=== PATIENT | female | born 1955 | race Caucasian/White ===

== ENCOUNTER 2018-10-26 01:38 | Emergency (ER) | payer OTHER, SELFPAY ==
[2018-10-26 01:39] VITALS: BP 154/87; PULSE 78; RESP 16; TEMP 36.4; O2SAT 98; BMI 25.8
--- NOTE | 2018-10-26 01:41 | EKG12_ITS ---
Test Reason : Blood Pressure : / mmHG Vent. Rate : 076 BPM Atrial Rate : 076 BPM P-R Int : 128 ms QRS Dur : 084 ms QT Int : 380 ms P-R-T Axes : 068 068 056 degrees QTc Int : 427 ms Normal sinus rhythm with sinus arrhythmia Septal infarct , age undetermined Abnormal ECG Confirmed by ISAAC VALENCIA, GARRET ([id number]), graphics editor RANDY KIRKLAND ([id number] on 10/29/2018 9:39:42 AM Referred By: REINALDO Confirmed By:GARRET GRAY MD
[2018-10-26] MEDS: Meclizine HCl 25 MG Tablet PO (02:20)
[2018-10-26] MEDS: Ondansetron ODT 4 MG Tablet PO (02:20)
--- NOTE | 2018-10-26 02:59 | ED.DCSUM_ITS ---
- ER Visit Summary Date of Service: 10/26/18 Chief Complaint: Dizziness History of Present Illness: The patient is a 62 F who presents with dizziness. She has been having chronic congestion and rhinorrhea. Recently she states that her left ear feels blocked clogged. Tonight she developed dizziness which she describes as vertigo. She felt like the room was spinning. This is worse with turning her head or lying flat. No other neurological symptoms such as speech difficulty slurred speech weakness or paresthesias. No history of prior similar symptoms. She denies any medical history such as diabetes hypertension hyperlipidemia. She has not a smoker. Physical Examination: Afebrile blood pressure 154/87 vitals otherwise normal Patient does have left nystagmus Left tympanic membrane is normal, right sided cerumen impaction Heart regular rate and rhythm Lungs are clear Abdomen soft Alert and oriented with no focal or lateralizing neurological deficits, NIH stroke scale is 0 Test Results: Not indicated Emergency Department Course and Treatment: Patient's presentation is highly suggestive of peripheral vertigo. She was treated with Zofran and meclizine here with improvement of symptoms. She was given a prescription for meclizine and discharged home. She understands to return for new or worsening symptoms and will otherwise follow-up as an outpatient. Treatment Plan: [] Disposition: Discharge Impression: Vertigo This note was generated with [employer] dictation software. It may contain incorrect words, spelling, and punctuation that were not noted in review of the chart prior to signing ED Disposition - Plan for ED Patient: Chief Complaint: Dizziness Referrals: Desiree Cralson MD [Primary Care Provider] -
--- NOTE | 2018-10-26 02:59 | ED.DEP ---
ED Disposition - Plan for ED Patient: Chief Complaint: Dizziness Instructions: ED Vertigo Unspecified Prescriptions: Meclizine HCl [Antivert] 25 mg PO 4X/DAY PRN PRN #20 tab PRN Reason: Dizziness Referrals: Desiree Carlson MD [Primary Care Provider] -
[2018-10-26 03:13] VITALS: BP 125/71; PULSE 70; RESP 18; O2SAT 97
== END 2018-10-26 03:14 | disposition home or self-care (01) ==
PROVIDERS: Emergency Provider Emergency Medicine; Family Provider Internal Medicine; PCP Internal Medicine
DX: R42 Dizziness and giddiness (principal)
CPT/HCPCS: 93005; 99284

== ENCOUNTER 2021-11-30 10:23 | Emergency (ER) | payer MEDICARE, SELFPAY ==
[2021-11-30 10:24] VITALS: BP 120/84; PULSE 87; RESP 18; TEMP 36.4; O2SAT 100; BMI 27.3
--- NOTE | 2021-11-30 10:42 | RAD_ITS ---
STUDY: X-RAY CHEST REASON FOR EXAM: Female, 66 years old. Chest pain TECHNIQUE: Single AP portable view of the chest. COMPARISON: None. FINDINGS: EKG electrodes are seen. Hyperinflation. The lungs are clear. There is no demonstrated pleural abnormality. Normal size heart. Normal mediastinum and lulu. Normal visualized pulmonary arteries. Normal visualized aortic arch and descending thoracic aorta. There are degenerative changes of the visualized thoracic spine. Normal visualized ribs, clavicles, and shoulders. There is no demonstrated abnormality of the visualized soft tissue structures of the upper abdomen. RAD/Chest 1 View (Portable) IMPRESSION: Hyperinflation. The lungs are clear. Electronically Signed: Andres Donahue MD at 11:23 EST ,
--- NOTE | 2021-11-30 10:42 | EKG12_ITS ---
Test Reason : CP Blood Pressure : / mmHG Vent. Rate : 074 BPM Atrial Rate : 074 BPM P-R Int : 116 ms QRS Dur : 082 ms QT Int : 386 ms P-R-T Axes : 062 075 061 degrees QTc Int : 428 ms Normal sinus rhythm Normal ECG Confirmed by ISAAC VALENCIA, GARRET ([id number]), subeditor SERGO RUBIO ([id number]) on 12/01/2021 9:50:53 AM Referred By: Confirmed By:GARRET GRAY MD
[2021-11-30 10:47] VITALS: O2SAT 96
[2021-11-30 10:52] LABS: Absolute Lymphocyte Count 1.17 X10^3/uL (0.83-4.51); Absolute Neutrophil Count 3.7 X10^3/uL (2.0-7.7); Basophil# 0.05 X10^3/uL; Basophil% 0.9 % (0-1); Eosinophil# 0.21 X10^3/uL; Eosinophils% 3.7 % (0-5); Hematocrit 41.1 % (37-47); Hemoglobin 13.3 g/dL (12.0-15.0); Lymphocyte # 1.17 X10^3/ul (0.83-4.51); Lymphocyte % 20.6 % (19-41); Mean Corp Hgb Conc 32.4 g/dL (32-36); Mean Corpuscular Hgb 29.4 pg (27.0-32.0); Mean Corpuscular Volume 90.9 fL (81-99); Mean Platelet Vol. 11.7 fl (6.2-12.0); Monocyte# 0.57 X10^3/uL; NRBC Flagged by Analyzer 0 % (0-5); Neutrophil # 3.67 X10^3/uL (2.7-7.7); Neutrophil % 64.6 % (47-70); Platelet Count 303 K/mm3 (150-450); RBC Distribution Width CV 13.5 % (11.6-14.6); Red Blood Count 4.52 M/mm3 (4.2-5.4); White Blood Count 5.7 K/mm3 (4.4-11.0)
[2021-11-30 11:03] LABS: BUN 14 mg/dL (7-18); Creatinine, Serum 0.95 mg/dL (0.55-1.02); EST Glomerular Filtration Rate 63 mL/min (>60); Estimated Creatinine Clearance 43.96 ml/min; Glucose 92 mg/dL (74-106)
[2021-11-30 11:04] LABS: Anion Gap 5 (5-15); BUN/Creat Ratio 14.8 RATIO (10-20); Calcium,Total 9.3 mg/dL (8.5-10.1); Chloride 109 mmol/L (98-107); Est Glom Filt Rate - Afr Amer 76 mL/min (>60); Potassium 3.7 mmol/L (3.5-5.1); Sodium Level 141 mmol/L (136-145); Troponin-I HS 6 pg/mL (3.0-54.0)
--- NOTE | 2021-11-30 11:16 | ED.VIS.CHEST ---
HPI History of Present Illness Chief Complaint: Chest Pain Narrative Narrative: 66-year-old female presenting with right-sided lower chest pain. She states that it started this morning upon awakening. She notes it is intermittent and does appear to be somewhat positional. Patient states that yesterday she shoveled snow and thinks may be the cause of this is too much exertion. She states she has not been as active since she retired a year ago. She does note that she gets more short of breath with physical exertion such as shoveling snow. Patient also states that she was more short of breath when shoveling than she would have been a year ago. Patient denies any cardiac history. She is not had fever, chills, cough, body aches. She denies any direct trauma to her chest. PFSH PFSH Medical History no medical history Home Medications NK 11/30/21 [History Last Taken Unknown] Allergy/AdvReac Type Severity Reaction Status Date / Time Sulfa (Sulfonamide Allergy Rash Verified 11/30/21 10:26 Antibiotics) Social History Smoking Status: Never smoker ROS ROS ED Constitutional Constitutional ED: Denies chills or fever(s) Eyes Eyes: Denies blurry vision or change in vision ENT ENT ED: Denies rhinorrhea or sore throat Cardiovascular Cardiovascular: Reports as per HPI Respiratory/Chest Respiratory/Chest: Reports dyspnea; Denies cough or sputum Gastrointestinal Gastrointestinal: Denies abdominal pain, nausea or vomiting Genitourinary Genitourinary ED: Denies dysuria or hematuria Musculoskeletal Musculoskeletal: Denies arthralgias or myalgias Integumentary Denies rash Neurologic Neurologic: Denies headache(s), paresthesias or weakness EXAM Physical Exam Const Vital Signs: 11/30/21 10:24 11/30/21 10:29 11/30/21 10:47 Temperature 97.6 F L Temperature Source Temporal Pulse Rate 87 Respiratory Rate 18 Respiratory Effort Normal Blood Pressure 120/84 H Blood Pressure Mean 96 Pulse Ox 100 96 Oxygen Delivery Method Room Air Room Air 11/30/21 11:54 Temperature Temperature Source Pulse Rate 61 Respiratory Rate 18 Respiratory Effort Blood Pressure 112/64 Blood Pressure Mean 80 Pulse Ox 97 Oxygen Delivery Method Room Air Positive well nourished General Appearance ED: NAD; Negative for pallor HEENT Reports moist mucous membranes normocephalic and atraumatic Eyes PERRL and EOMs intact bilaterally Chest Wall inspection of chest normal and palpation of chest normal Resp normal respiratory effort Effort and Inspection: respiratory distress Cardio regular rate and regular rhythm Neuro oriented x3 Sensorium / Orientation: awake and alert Psych mental status grossly normal Skin no rashes or lesions noted General Skin Exam: Negative for jaundice or pallor Heart Score History: Slightly/Non-Suspicious ECG: Normal Age: </= 45 years Risk Factors: No Risk Factors Troponin: </= Normal Limit Score: 0 MDM MDM MDM Narrative Medical decision making narrative: Patient presenting with a dull intermittent right-sided chest pain which she states started this morning. She herself believes she may have overexerted herself shoveling snow yesterday. She does state that she was more short of breath when she was shoveling snow but states she is also out of shape after retiring a year ago. EKG on my interpretation shows a normal sinus rhythm with ventricular rate of 74 bpm without sign of ischemic change. CBC and BMP are within normal limits. High-sensitivity troponin is 6. Patient does not have sharp pleuritic pain, nor does she have DVT or PE risk factors. Her heart rate is 74 and her oxygen is 100% on room air with normal respiratory rate 18. I have no clinical suspicion for pulmonary embolism. Chest x-ray on my interpretation shows no acute cardiopulmonary process and the radiologist agree. Will obtain delta troponin. Delta troponin is also 6. I do believe this was ACS. All findings discussed with patient and she is comfortable being discharged home to follow-up with her primary care provider. Impression: 1. Chest pain noncardiac Lab Data Attestation: I reviewed the patient's lab results. Labs: Laboratory Results - last 24 hr 11/30/21 11/30/21 11/30/21 10:35 10:35 12:35 WBC 5.7 RBC 4.52 Hgb 13.3 Hct 41.1 MCV 90.9 MCH 29.4 MCHC 32.4 RDW Std Deviation 45.0 H RDW Coeff of Zuri 13.5 Plt Count 303 MPV 11.7 Immature Gran % (Auto) 0.200 Neut % (Auto) 64.6 Lymph % (Auto) 20.6 [place] % (Auto) 10.0 Eos % (Auto) 3.7 Baso % (Auto) 0.9 Absolute Neuts (auto) 3.7 Absolute Lymphs (auto) 1.17 Nucleated RBC % 0 Sodium 141 Potassium 3.7 Chloride 109 H Carbon Dioxide 27.0 Anion Gap 5 BUN 14 Creatinine 0.95 Estim Creat Clear Calc 43.96 Est GFR (MDRD) Af Amer 76 Est GFR (MDRD) Non-Af 63 BUN/Creatinine Ratio 14.8 Glucose 92 Calcium 9.3 Troponin I High Sens 6 6 Radiography Diagnostic Testing: Clinical Impression(s) from Imaging Studies Chest X-Ray 11/30/21 10:42 IMPRESSION: Hyperinflation. The lungs are clear. Electronically Signed: Andres Donahue MD at 11:23 EST , Discharge Plan Triage Chief Complaint: Chest Pain ED Provider: Matteo Harris Dx/Rx/DC Orders Instructions: ED Chest Pain, Noncardiac Prescriptions: No Action NK RF: 0 Primary Care Provider: Desiree Carlson Referrals: Desiree Carlson MD [Primary Care Provider] - Disposition Disposition: Home, Self Care
[2021-11-30 11:54] VITALS: BP 112/64; PULSE 61; RESP 18; O2SAT 97
[2021-11-30 13:11] LABS: Troponin-I HS 6 pg/mL (3.0-54.0)
[2021-11-30 13:46] VITALS: BP 128/75; PULSE 77; RESP 16; O2SAT 98
== END 2021-11-30 13:46 | disposition home or self-care (01) ==
PROVIDERS: Emergency Provider Student in an Organized Health Care Education/Training Program; PCP Internal Medicine; Visit Provider Student in an Organized Health Care Education/Training Program
DX: R07.89 Other chest pain (principal)
CPT/HCPCS: 71045; 80048; 84484; 85025; 93005; 99284; A4216

== ENCOUNTER 2024-11-27 09:12 | Emergency (ER) | payer MEDICARE, SELFPAY ==
[2024-11-27 09:12] VITALS: BP 127/80; PULSE 84; RESP 16; TEMP 36.7; O2SAT 100; BMI 25.3
--- NOTE | 2024-11-27 09:30 | RAD_ITS ---
EXAM: XR Right Wrist Complete, 3 or More Views CLINICAL INDICATION: TECHNIQUE: Frontal, lateral and oblique views of the right wrist. COMPARISON: No relevant prior studies available. FINDINGS: BONES/JOINTS: Comminuted impacted fracture of the distal radius with posterior angulation of the distal fragment. Probable dislocation of the distal radioulnar joint. SOFT TISSUES: Unremarkable. No radiopaque foreign body. RAD/Wrist min 3 Views IMPRESSION: Comminuted impacted fracture of the distal radius with posterior angulation of the distal fragment. Soft tissue swelling. Reading Location: [facility]
[2024-11-27 09:39] VITALS: BP 125/73; BP 127/77; PULSE 78; PULSE 80; PULSE 85; PULSE 88; RESP 16; TEMP 36.5; O2SAT 97; O2SAT 98; O2SAT 99
[2024-11-27] MEDS: Propofol 200 MG/20 ML Vial IV BOLUS (10:00)
[2024-11-27 10:20] VITALS: BP 116/78; BP 127/77; PULSE 68; PULSE 75; RESP 16; O2SAT 93; O2SAT 95
--- NOTE | 2024-11-27 10:23 | RAD_ITS ---
EXAM: WRIST MIN 3 VIEWS CLINICAL HISTORY: Post reduction examination. COMPARISON: Comparison is made with prior study done earlier in the day. TECHNIQUE: Three views were obtained. FINDINGS: The examination was done in the cast. Satisfactory reduction. RAD/Wrist min 3 Views IMPRESSION: The examination was done in the cast. There is satisfactory reduction of the d istal radial fracture. Reading Location: [facility]
[2024-11-27 10:26] VITALS: BP 116/68; PULSE 65; RESP 14; O2SAT 96
--- NOTE | 2024-11-27 10:29 | EX.ED.UPPERE ---
HPI History of Present Illness Chief Complaint: Upper Extremity Injury [facility] Medical History no medical history Home Medications ?Medication ?Instructions ?Recorded ?Last Taken ?Type oxycodone-acetaminophen 5 mg-325 1 tab PO Q6H PRN pain 3 days #12 11/27/24 Unknown Rx mg tablet (Percocet) tabs Allergy/AdvReac Type Severity Reaction Status Date / Time Sulfa (Sulfonamide Allergy Rash Verified 11/30/21 10:26 Antibiotics) Social History Smoking Status: Never smoker EXAM Physical Exam Const Vital Signs: 11/27/24 09:12 11/27/24 09:39 11/27/24 09:39 Temperature 98.0 F 97.7 F L Temperature Source Oral Pulse Rate 84 80 Pulse Rate [1 (Initial Baseline)] Pulse Rate [2] Pulse Rate [3] Pulse Rate [4] Respiratory Rate 16 16 Respiratory Rate [1 (Initial Baseline)] Respiratory Rate [2] Respiratory Rate [3] Respiratory Rate [4] Blood Pressure 127/80 H 125/73 H Blood Pressure [1 (Initial Baseline)] Blood Pressure [4] Blood Pressure Mean 95 Baseline BP 125/73 Pulse Ox 100 99 Oxygen Delivery Method Room Air Nasal Cannula Oxygen Delivery Method [1 (Initial Baseline)] Oxygen Delivery Method [2] Oxygen Delivery Method [3] Oxygen Delivery Method [4] Oxygen Flow Rate (L/min) 2 EtCo2 (Normal 35-45 , high quality CPR 10-20 & ROSC>/=40mmHg 35 EtCo2 (Normal 35-45 , high quality CPR 10-20 & ROSC>/=40mmHg [1 (Initial Baseline)] EtCo2 (Normal 35-45 , high quality CPR 10-20 & ROSC>/=40mmHg [2] EtCo2 (Normal 35-45 , high quality CPR 10-20 & ROSC>/=40mmHg [3] EtCo2 (Normal 35-45 , high quality CPR 10-20 & ROSC>/=40mmHg [4] 11/27/24 09:39 11/27/24 10:20 11/27/24 10:20 Temperature Temperature Source Pulse Rate 75 68 Pulse Rate [1 (Initial Baseline)] 85 Pulse Rate [2] 88 Pulse Rate [3] 78 Pulse Rate [4] 80 Respiratory Rate 16 16 Respiratory Rate [1 (Initial Baseline)] 16 Respiratory Rate [2] 16 Respiratory Rate [3] 16 Respiratory Rate [4] 16 Blood Pressure 127/77 H 116/78 Blood Pressure [1 (Initial Baseline)] 125/73 H Blood Pressure [4] 127/77 H Blood Pressure Mean Baseline BP Pulse Ox 93 95 Oxygen Delivery Method Room Air Room Air Oxygen Delivery Method [1 (Initial Baseline)] Room Air Oxygen Delivery Method [2] Room Air Oxygen Delivery Method [3] Room Air Oxygen Delivery Method [4] Room Air Oxygen Flow Rate (L/min) EtCo2 (Normal 35-45 , high quality CPR 10-20 & ROSC>/=40mmHg 32 29 EtCo2 (Normal 35-45 , high quality CPR 10-20 & ROSC>/=40mmHg [1 (Initial Baseline)] 28 EtCo2 (Normal 35-45 , high quality CPR 10-20 & ROSC>/=40mmHg [2] 29 EtCo2 (Normal 35-45 , high quality CPR 10-20 & ROSC>/=40mmHg [3] 30 EtCo2 (Normal 35-45 , high quality CPR 10-20 & ROSC>/=40mmHg [4] 28 11/27/24 10:26 Temperature Temperature Source Pulse Rate 65 Pulse Rate [1 (Initial Baseline)] Pulse Rate [2] Pulse Rate [3] Pulse Rate [4] Respiratory Rate 14 Respiratory Rate [1 (Initial Baseline)] Respiratory Rate [2] Respiratory Rate [3] Respiratory Rate [4] Blood Pressure 116/68 Blood Pressure [1 (Initial Baseline)] Blood Pressure [4] Blood Pressure Mean Baseline BP Pulse Ox 96 Oxygen Delivery Method Room Air Oxygen Delivery Method [1 (Initial Baseline)] Oxygen Delivery Method [2] Oxygen Delivery Method [3] Oxygen Delivery Method [4] Oxygen Flow Rate (L/min) EtCo2 (Normal 35-45 , high quality CPR 10-20 & ROSC>/=40mmHg 29 EtCo2 (Normal 35-45 , high quality CPR 10-20 & ROSC>/=40mmHg [1 (Initial Baseline)] EtCo2 (Normal 35-45 , high quality CPR 10-20 & ROSC>/=40mmHg [2] EtCo2 (Normal 35-45 , high quality CPR 10-20 & ROSC>/=40mmHg [3] EtCo2 (Normal 35-45 , high quality CPR 10-20 & ROSC>/=40mmHg [4] MDM MDM MDM Narrative Medical decision making narrative: Differential diagnosis includes but not limited to fracture dislocation sprain tendon injury neurovascular injury My independent interpretation of the plain films of the right wrist has a distal radius fracture comminuted with posterior angulation. Patient provided informed written consent for the use of propofol for procedural sedation. Once the usual prep was completed patient received 0.5 mg/kg bolus of propofol followed by 0.25 mg/kg aliquots of propofol to achieve adequate sedation. Total use was 75 mg. The patient achieved adequate sedation and using standard reduction technique the fracture was reduced and she was placed in a well-padded anterior posterior plaster splint made by this physician. She was allowed to recover without incident. My independent interpretation of the postreduction films is satisfactory reduction. She remains neurovascularly intact on my repeat examination. She will be discharged home with orthopedic follow-up. I will write for pain medication. History & Record Review Discussion w/independent historian: Patient Radiography Diagnostic Testing: Clinical Impression(s) from Imaging Studies Wrist X-Ray 11/27/24 09:30 IMPRESSION: Comminuted impacted fracture of the distal radius with posterior angulation of the distal fragment. Soft tissue swelling. Reading Location: [facility] Procedures Procedural Sedation 1 (Initial Baseline): Consent Signed: Yes Any Problems With Anesthesia: No You/Your family experience fever (hyperthermia) w/anesthesia: No Sedation medication: Propofol Dose: 6 Total Moderate Sedation Units: 75 Maliampati Score: Class I ASA Classification: I Discharge Plan Triage Chief Complaint: Upper Extremity Injury ED Provider: Rufino Kelly Dx/Rx/DC Orders Clinical Impression: Fall, Distal radius fracture, right Instructions: Distal Radius Fx, ED Procedural Sedation, (Adult) Prescriptions: New oxycodone-acetaminophen [Percocet] 5-325 mg tablet 1 tab PO Q6H PRN (Reason: pain) 3 Days Qty: 12 0RF Primary Care Provider: Desiree Carlson Referrals: Desiree Carlson MD [Primary Care Provider] - Terrance Edmondson MD [Med Staff - Active Staff] - As soon as possible Print Language: Barbadian Disposition Disposition: Home, Self Care
[2024-11-27 10:31] VITALS: BP 100/72; PULSE 65; RESP 16; O2SAT 97
== END 2024-11-27 11:30 | disposition home or self-care (01) ==
PROVIDERS: Emergency Provider Emergency Medicine; PCP Internal Medicine; Visit Provider Emergency Medicine
DX: S52.501A Unspecified fracture of the lower end of right radius, initial encounter for closed fracture (principal); W19.XXXA Unspecified fall, initial encounter
CPT/HCPCS: 25635; 29125; 73110; 99284; A4216

== ENCOUNTER 2024-12-17 07:23 | Day surgery (SDC) | payer MEDICARE, SELFPAY ==
[2024-12-17] VITALS (17 sets, daily range): BP systolic 118–145; BP diastolic 70–92; PULSE 54–95; RESP 16–20; TEMP 36.1–36.4; O2SAT 93–100; BMI 25.0
--- NOTE | 2024-12-17 07:34 | EKG12_ITS ---
Test Reason : PRE OP Blood Pressure : */* mmHG Vent. Rate : 70 BPM Atrial Rate : 70 BPM P-R Int : 130 ms QRS Dur : 84 ms QT Int : 380 ms P-R-T Axes : 64 71 67 degrees QTcB Int : 410 ms Normal sinus rhythm Normal ECG No previous ECGs available Confirmed by Denis Vera ([id number]), digital editor SERGO RUBIO ([id number]) on 12/22/2024 10:58:26 AM Referred By: Terrance Edmondson Confirmed By: Denis Vera
--- NOTE | 2024-12-17 08:00 | RAD_ITS ---
PROCEDURE: WRIST 2 VIEWS REASON FOR EXAM: Fracture. TECHNIQUE: Multiple spot intraoperative films. COMPARISON: None. FINDINGS: Number of images: 4 Fluoroscopy time: 27 seconds Dose: 0.43 mGy Surgical hardware in the distal radius RAD/Wrist 2 Views IMPRESSION: INTRAOPERATIVE FILMS FOR LOCALIZATION. Reading Location: [id number]
[2024-12-17] MEDS: 0.9% Normal Saline (1000mL) 1,000 ML 15 ML IV (08:09)
--- NOTE | 2024-12-17 08:23 | PRE.ANES_ITS ---
ASA Classification* ASA Classification ASA Classification: 3 Assessment & Plan Anesthesia* Anesthesia Assessment Anesthesia Assessment: Discussed sedation and/or anesthesia options, risks, benefits, and alternatives with patient/parents/legal guardian/POA. Questions invited. The patient/parents/legal guardian/POA seems to understand and agrees to proceed with anesthesia plan. Reviewed the physical assessment, medical history, allergy history and patient home medications list prior to surgery/procedure/anesthetic and documented any changes. Performed airway and anesthesia risk assessments. Anesthesia Type Anesthesia Type: General History Source History Obtained from:: Patient and Chart Anesthesia Focused Assessment* Temperature: 97.5 F Pulse Rate: 81 Blood Pressure: 121/75 Respiratory Rate: 18 Pulse Ox: 97 Oxygen Delivery Method: Room Air Airway Assessment Mouth opens: 2 cm Mallampati Score: II Teeth Condition: Dentures, Missing (few missing teeth on the bottom) and Upper Neck Range of motion (ROM): Full ROM Focused Labs Anesthesia Preop lab: CBC WBC 5.7 K/mm3 (4.4-11.0) 11/30/21 10:35 11/30/21 RBC 4.52 M/mm3 (4.2-5.4) 11/30/21 10:35 11/30/21 Hgb 13.3 g/dL (12.0-15.0) 11/30/21 10:35 11/30/21 Hct 41.1 % (37-47) 11/30/21 10:35 11/30/21 Plt Count 303 K/mm3 (150-450) 11/30/21 10:35 11/30/21 CHEMISTRY Potassium 3.7 mmol/L (3.5-5.1) 11/30/21 10:35 11/30/21 Sodium 141 mmol/L (136-145) 11/30/21 10:35 11/30/21 BUN 14 mg/dL (7-18) 11/30/21 10:35 11/30/21 Creatinine 0.95 mg/dL (0.55-1.02) 11/30/21 10:35 11/30/21 Glucose 92 mg/dL (74-106) 11/30/21 10:35 11/30/21 COAG Pre-Assessment Diagnosis/Proposed Procedure Planned Operative Procedure(s): RIGHT DISTAL RADIUS ORIF Anesthesia History 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 When Was Last Pacemaker Check QUESTION #4 FULL TEXT: You/Your Family Experience fever (hyperthermia) with Anesthesia Last Oral Intake Last Oral intake: Last Oral Intake NPO since 00:00 12/17/24 08:00 Meds taken in AM with sips of No 12/17/24 08:00 water? Meds patient instructed to take am of surgery Any additional information?: Yes NPO since: 00:00 Meds taken in AM with sips of water?: No PONV PONV - apparel pattern maker: PONV - apparel pattern maker Female Yes 12/12/24 11:31 HX of Motion Sickness No 12/12/24 11:31 HX of N/V After Surgery No 12/12/24 11:31 Non-Smoker Yes 12/12/24 11:31 Duration of Surgery greater Yes 12/12/24 11:31 than 60 minutes Number of Risk Factors 3 12/12/24 11:31 PONV Score Moderate Risk 12/12/24 11:31 Height & Weight Height & Weight: Anesthesia: Height & Weight Height 5 ft 1 in 12/17/24 08:00 Weight: 60 kg 12/17/24 08:00 Body Mass Index (BMI) 25.0 12/17/24 08:00 Respiratory Assessment Respiratory Assessment - apparel pattern maker: Respiratory Tract Infection Hx - apparel pattern maker Hx Respiratory Tract Infection No 12/12/24 11:31 STOP Sleep Apnea STOP Sleep Apnea - apparel pattern maker: STOP Sleep Apnea - apparel pattern maker Hx Hypertension No 12/12/24 11:31 Hx Sleep Apnea No 12/12/24 11:31 CPAP BIPAP Do you snore loudly (louder No 12/12/24 11:31 than talking or can be heard Do you often feel tired/ Yes 12/12/24 11:31 fatigued/ sleepy during daytime? Has anyone observed you stop No 12/12/24 11:31 breathing during sleep? STOP Results Negative 12/12/24 11:31 QUESTION #5 FULL TEXT : Do you snore loudly (louder than talking or can be heard through closed doors)? 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 Specify any problems Hx of Preganancy in last 3 No 12/12/24 11:31 Months Nurse Filling Out Transfusion DSCHRIBER 12/12/24 11:31 & Questions: Date: 12/12/24 12/12/24 11:31 Time: 11:32 12/12/24 11:31 Patient unable to answer at this time (ie. confused, unrespo /Reproduction History /Reproductive History - apparel pattern maker: /Reproductive Hx- apparel pattern maker Hx Now No 12/12/24 11:31 Gestational Age (in weeks): EDC: Hx Hx Para Hx Section SAB No 12/12/24 11:31 Active Medications Active Medications: Current Medications Generic Name Dose Route Start Last Admin Trade Name Freq PRN Reason Stop Dose Admin Cefazolin Sodium 2 gm/ N/A 20 mls @ 400 mls/hr 12/17/24 09:00 IV 12/17/24 09:02 PREOP ONE Sodium Chloride 1,000 mls @ 15 mls/hr 12/17/24 07:35 12/17/24 08:09 IV 12/22/24 20:54 15 mls/hr .Q48H KEENAN Administration Protocol PFSH Medical History Wears glasses Wears dentures Post-menopausal Alcohol use Anemia Migraine headache Shortness of breath on exertion Non-smoker History of stress test Home Medications ?Medication ?Instructions ?Recorded ?Last Taken ?Type multivitamin (Daily Multi-Vitamin 1 tab PO DAILY 12/1212/16/24 History tablet) Allergy/AdvReac Type Severity Reaction Status Date / Time Sulfa (Sulfonamide Allergy Rash Verified 12/17/24 07:59 Antibiotics) Surgical History Hx of tonsillectomy History of esophagogastroduodenoscopy (EGD) Hx of colonoscopy Hx of breast biopsy Social History Smoking Status: Never smoker Review of Systems (Anesthesia) ROS Narrative System reviewed and no additional complaints, except as documented. Physical Exam Const alert and oriented x3 HEENT dentition normal Neck full ROM Resp normal respiratory effort Cardio regular rate Neuro oriented x3 and moves all extremities
--- NOTE | 2024-12-17 08:56 | HP.PCM_ITS ---
HPI - General HPI Narrative SMILEY SHAH, is a 69 F who presents for right distal radius open reduction internal fixation possible fixation of the ulna. No changes to the history and physical exam. Patient understands risks alternatives benefits discussed as well as postoperative recovery and narcotic counseling. Patient understands r ight wrist marked no further questions or concerns. MR#: [id number] Acct: [id number] Name: SMILEY SHAH Rep #: [id number] : 1955 Provider: Dr. Terrance Edmondson MD Age/Sex: 69/F [place] [facility] [email or web address] Status: Signed Intake Vital Signs 11/27/2508:12 Height 5 ft 1 in Intake Visit Reasons: RIGHT WRIST Allergies Sulfa (Sulfonamide Antibiotics) Allergy (Verified 11/30/21 10:26) Rash Have you fallen in the past year?: Yes PFSH Medical History no medical history Social History Smoking Status: Never smoker HPI RIGHT WRIST Details: This documentation accurately reflects the service provided and the decisions made by me, Dr. Terrance Edmondson MD 12/11/24 1036. Part of today?s visit was documented by [ ], acting as scribe. SMILEY SHAH is a 69 year old F here today for right distal radius fracture. Vadim rodriguez was in the emergency department on 11/27 this would have been 2 weeks ago now. Had a closed reduction and casting. The patient slipped on ice about 2 weeks ago. Had a closed reduction and casting in the emergency department. This is a [id number] female. They are retired. Had some swelling in the hand initially and some bruising but that has largely resolved at this point with normal sensation throughout the hand. Supplemental Info [facility] [address], [place] [id number] Wrist min 3 Views MR#: [id number] Acct: [id number] Name: SMILEY SHAH Rep #: [id number] : 1955 F 69 From: Olvin Candelaria MD PCP: Dr. Desiree Carlson MD Status: REG ER Study: Wrist min 3 Views Date of Exam: 11/27/24 Exam# [id number] Ordering Dr: Rufino Kelly DO EXAM: XR Right Wrist Complete, 3 or More Views CLINICAL INDICATION: TECHNIQUE: Frontal, lateral and oblique views of the right wrist. COMPARISON: No relevant prior studies available. FINDINGS: BONES/JOINTS: Comminuted impacted fracture of the distal radius with posterior angulation of the distal fragment. Probable dislocation of the distal radioulnar joint. SOFT TISSUES: Unremarkable. No radiopaque foreign body. RAD/Wrist min 3 Views IMPRESSION: Comminuted impacted fracture of the distal radius with posterior angulation of the distal fragment. Soft tissue swelling. [facility] [address] [place] [address] Wrist min 3 Views MR#: [id number] Acct: [id number] Name: SMILEY SHAH Rep #: [id number] : 1955 F 69 From: Andres Donahue MD PCP: Dr. Desiree Carlson MD Status: REG ER Study: Wrist min 3 Views Date of Exam: 11/27/24 Exam# [id number] Ordering Dr: Rufino Kelly DO EXAM: WRIST MIN 3 VIEWS CLINICAL HISTORY: Post reduction examination. COMPARISON: Comparison is made with prior study done earlier in the day. TECHNIQUE: Three views were obtained. FINDINGS: The examination was done in the cast. Satisfactory reduction. RAD/Wrist min 3 Views IMPRESSION: The examination was done in the cast. There is satisfactory reduction of the distal radial fracture. I independently reviewed the imaging. Concur with radiologist report. Repeat x-rays 3 views of the right wrist obtained today. This shows a repeat dorsal displacement of the distal fragment up to 40% displacement dorsal angulation. This is displaced into the original position it was in there does also appear to be possibly a transverse distal ulna fracture. Coding Level of Care Code Off vis,new,level 3 Diagnoses Distal radius fracture, right S52.501A Assessment and Plan Assessment and Plan (1) Distal radius fracture, right: Status: Inactive Plan: SMILEY SHAH is a 69 year old F here today for right distal radius fracture. There also appears to be possibly a nondisplaced transverse distal ulna fra cture. The position of the fracture is not ideal. It is displaced dorsally. The risk of continue to treat this nonoperatively would be wrist stiffness malunion possibly further displacement and stiffness of the wrist and other problems with malalignment of the carpus. That being said there is also risk for surgery open reduction internal fixation of the radius and possible fixation of the distal ulna fracture as well. Explained these risks and the patient does want to go ahead with right distal radius open reduction internal fixation possible fixation of the ulna. We will try to get this done within the next week. Pros and cons risks and benefits were discussed with the patient including but not limited to infection, pain, stiffness, bleeding, damage to surrounding structures, neurovascular injury, recurrence or retear, failure or wear of hardware or fixation, instability, fracture, deep vein thrombosis and pulmonary embolism, anesthetic risks, , patient dissatisfaction, need for further surgery and other risks. Patient understood and wished to proceed with surgery, and signed the informed consent documentation. Orders: Orders Wrist min 3 Views Today S52.501A - Unspecified fracture of the lower end of right radius, initial encounter for closed fracture Clinical Quality Measures Falls Risk Screening/Assistive Devices Have you fallen in the past year?: Yes Ortho Exam General General: Yes no acute distress Neurologic: Yes alert and Yes oriented x3 Psychologic: Yes reasonable and appropriate Right Wrist/Hand Skin/Wound: Yes CDI, Yes Swelling, No Ecchymosis, Yes nail intact and Yes cap illary refill normal Right Wrist: Yes TTP Fracture site Motor: EPL: 4, FDP-2: 4, 1st Dorsal Interosseous: 4 and APB: 4 Sensation: Radial: I, Ulnar: I and Median: I WRIST: Patient in a volar and dorsal based splint. This immobilizes the wrist. The forearm is soft no pain in the elbow or fingers. Left Wrist/Hand Skin/Wound: Yes Swelling and No Ecchymosis [facility] Medical History Wears glasses Wears dentures Post-menopausal Alcohol use Anemia Migraine headache Shortness of breath on exertion Non-smoker History of stress test Home Medications ?Medication ?Instructions ?Recorded ?Last Taken ?Type multivitamin (Daily Multi-Vitamin 1 tab PO DAILY 12/1212/16/24 History tablet) Allergy/AdvReac Type Severity Reaction Status Date / Time Sulfa (Sulfonamide Allergy Rash Verified 12/17/24 07:59 Antibiotics) Surgical History Hx of tonsillectomy History of esophagogastroduodenoscopy (EGD) Hx of colonoscopy Hx of breast biopsy Social History Smoking Status: Never smoker Vital Signs Vital Signs Vital Signs: 12/17/24 08:00 12/17/24 08:00 12/17/24 08:31 Temperature 97.5 F L 97.5 F L Temperature Source Temporal Pulse Rate 81 81 Respiratory Rate 18 18 Respiratory Pattern Normal Blood Pressure 121/75 H 121/75 H Blood Pressure Mean 90 Blood Pressure Source Monitor Blood Pressure Position Semi-Fowlers Blood Pressure Location Left Arm Pulse Ox 97 97 Oxygen Delivery Method Room Air Room Air Weight Weight: 132 lb 4.438 oz Body Mass Index (BMI) 25.0
--- NOTE | 2024-12-17 09:28 | PCM.PRE.AN2 ---
Assessment & Plan Anesthesia* Anesthesia Assessment Anesthesia Assessment: Discussed sedation and/or anesthesia options, risks, benefits, and alternatives with patient/parents/legal guardian/POA. Questions invited. The patient/parents/legal guardian/POA seems to understand and agrees to proceed with anesthesia plan. Reviewed the physical assessment, medical history, allergy history and patient home medications list prior to surgery/procedure/anesthetic and documented any changes. Performed airway and anesthesia risk assessments. Anesthesia Focused Assessment* Temperature: 97.5 F Pulse Rate: 81 Blood Pressure: 121/75 Respiratory Rate: 18 Pulse Ox: 97 Oxygen Delivery Method: Room Air Airway Assessment Mouth opens: 2 cm Mallampati Score: II Teeth Condition: Intact Neck Range of motion (ROM): Full ROM Focused Labs Anesthesia Preop lab: CBC WBC 5.7 K/mm3 (4.4-11.0) 11/30/21 10:35 11/30/21 RBC 4.52 M/mm3 (4.2-5.4) 11/30/21 10:35 11/30/21 Hgb 13.3 g/dL (12.0-15.0) 11/30/21 10:35 11/30/21 Hct 41.1 % (37-47) 11/30/21 10:35 11/30/21 Plt Count 303 K/mm3 (150-450) 11/30/21 10:35 11/30/21 CHEMISTRY Potassium 3.7 mmol/L (3.5-5.1) 11/30/21 10:35 11/30/21 Sodium 141 mmol/L (136-145) 11/30/21 10:35 11/30/21 BUN 14 mg/dL (7-18) 11/30/21 10:35 11/30/21 Creatinine 0.95 mg/dL (0.55-1.02) 11/30/21 10:35 11/30/21 Glucose 92 mg/dL (74-106) 11/30/21 10:35 11/30/21 COAG Pre-Assessment Diagnosis/Proposed Procedure Planned Operative Procedure(s): RIGHT DISTAL RADIUS ORIF Anesthesia History Anesthesia History - animal physiologist: Anesthesia History - animal physiologist Hx Hospitalization No 12/12/24 11:31 Any Problems With Anesthesia [ No 11/27/24 10:33 1 (Initial Baseline)] Any Problems With Anesthesia No 12/12/24 11:31 Cholinesterase deficiency No 12/12/24 11:31 You/Your Family Experience No 12/12/24 11:31 fever (hyperthermia) with Relationship Recent Exposure to Contagious No 12/17/24 08:00 Disease Does patient have nerve No 12/12/24 11:31 stimulator Patient instructed to have device shut off --Does patient have Pacemaker No 12/17/24 08:00 or ICD? When Was Last Pacemaker Check QUESTION #4 FULL TEXT: You/Your Family Experience fever (hyperthermia) with Anesthesia Last Oral Intake Last Oral intake: Last Oral Intake NPO since 00:00 12/17/24 08:31 Meds taken in AM with sips of No 12/17/24 08:31 water? Meds patient instructed to take am of surgery PONV PONV - animal physiologist: PONV - animal physiologist Female Yes 12/12/24 11:31 HX of Motion Sickness No 12/12/24 11:31 HX of N/V After Surgery No 12/12/24 11:31 Non-Smoker Yes 12/12/24 11:31 Duration of Surgery greater Yes 12/12/24 11:31 than 60 minutes Number of Risk Factors 3 12/12/24 11:31 PONV Score Moderate Risk 12/12/24 11:31 Height & Weight Height & Weight: Anesthesia: Height & Weight Height 5 ft 1 in 12/17/24 08:00 Weight: 60 kg 12/17/24 08:00 Body Mass Index (BMI) 25.0 12/17/24 08:00 Respiratory Assessment Respiratory Assessment - animal physiologist: Respiratory Tract Infection Hx - animal physiologist Hx Respiratory Tract Infection No 12/12/24 11:31 STOP Sleep Apnea STOP Sleep Apnea - animal physiologist: STOP Sleep Apnea - animal physiologist Hx Hypertension No 12/12/24 11:31 Hx Sleep Apnea No 12/12/24 11:31 CPAP BIPAP Do you snore loudly (louder No 12/12/24 11:31 than talking or can be heard Do you often feel tired/ Yes 12/12/24 11:31 fatigued/ sleepy during daytime? Has anyone observed you stop No 12/12/24 11:31 breathing during sleep? STOP Results Negative 12/12/24 11:31 QUESTION #5 FULL TEXT : Do you snore loudly (louder than talking or can be heard through closed doors)? Tobacco Use History Tobacco Use History - animal physiologist: Tobacco Use History - animal physiologist Tobacco Use Smoking Status Never smoker 12/12/24 11:31 Hx Tobacco Use No 12/12/24 11:31 Years Smoking Packs Smoked per Day Smoking Cessation Date was within the last 15 years Hx Smoking Cessation Date Hx Smoking Cessation Counseling Hematologic Medial History Hematologic Hx - animal physiologist: Hematologic Medical Hx - ruling machine operator Hx of Blood Transfusion No 12/12/24 11:31 Hx of Transfusion in last 3 No 12/12/24 11:31 Months Date of Last Transfusion (if within last 3 months) Ever experience any problems No 12/12/24 11:31 with transfusion(s)? Specify any problems Hx of Preganancy in last 3 No 12/12/24 11:31 Months Nurse Filling Out Transfusion DSCHRIBER 12/12/24 11:31 & Questions: Date: 12/12/24 12/12/24 11:31 Time: 11:32 12/12/24 11:31 Patient unable to answer at this time (ie. confused, unrespo /Reproduction History /Reproductive History - animal physiologist: /Reproductive Hx- animal physiologist Hx Now No 12/12/24 11:31 Gestational Age (in weeks): EDC: Hx Hx Para Hx Section SAB No 12/12/24 11:31 Active Medications Active Medications: Current Medications Generic Name Dose Route Start Last Admin Trade Name Freq PRN Reason Stop Dose Admin Sodium Chloride 1,000 mls @ 15 mls/hr 12/17/24 07:35 12/17/24 08:09 IV 12/22/24 20:54 15 mls/hr .Q48H KEENAN Administration Protocol PFSH Medical History Wears glasses Wears dentures Post-menopausal Alcohol use Anemia Migraine headache Shortness of breath on exertion Non-smoker History of stress test Home Medications ?Medication ?Instructions ?Recorded ?Last Taken ?Type multivitamin (Daily Multi-Vitamin 1 tab PO DAILY 12/12/24 12/16/24 History tablet) Allergy/AdvReac Type Severity Reaction Status Date / Time Sulfa (Sulfonamide Allergy Rash Verified 12/17/24 07:59 Antibiotics) Surgical History Hx of tonsillectomy History of esophagogastroduodenoscopy (EGD) Hx of colonoscopy Hx of breast biopsy Social History Smoking Status: Never smoker Review of Systems (Anesthesia) ROS Narrative System reviewed and no additional complaints, except as documented.
--- NOTE | 2024-12-17 09:34 | PCM.PN.BLA ---
Progress Note Anesthesia Pre-evaluation addition: Patient was seen in preop with daughter at bedside. Discussed possibility of performing a post-operative supraclavicular nerve block with ultrasound guidance if needed in the recovery area. Discussed risks including nerve injury, pneumothorax, LAST allergic reaction, lack of efficiacy, difficulty breathing. Patient and daughter okay and consented.
[2024-12-17] MEDS: Cefazolin 2 GM in Syringe IV (09:35)
[2024-12-17] MEDS: Bupivacaine 0.25% 30 ML Vial (10:37)
--- NOTE | 2024-12-17 10:38 | PCM.OPRPT ---
Problems Associated Problem List Diagnoses (1) Distal radius fracture, right: Procedures Musculoskeletal [id number]-29xxx: Other Procedure See Report Operative Report (Standard) Operative Information Date of Procedure: 12/17/24 Pre-Operative Diagnosis: Right distal radius fracture Post-Operative Diagnosis: Same Surgery/Procedure Performed: Right distal radius open reduction internal fixation hotel superintendent: Yes Housekeeping Room Inspector: william Tasks completed by certified ophthalmic surgical assistant: Retracting Additional assistant front end manager?: No Type of Anesthesia: General and Local RN Documented Start/Stop Times: Operation Date: 12/17/24 09:00 Case Time Into Pre-Op 12/17/24 07:32 Out of Pre-Op 12/17/24 09:25 Anesthesia Start 12/17/24 09:31 Into Room 12/17/24 09:31 Procedure Start 12/17/24 09:47 Procedure End 12/17/24 10:37 Procedure Start Time: 09:47 Procedure Stop Time: 10:37 Select all DRAINS/GRAFTS/IMPLANTS that apply: Implanted device Implanted device details: Arthrex distal radius plate Estimated Blood Loss: 25 Specimen collected: No Description of surgery: Patient brought to the operating room theater. Placed supine on the table. General anesthesia induced. 2 g IV Ancef administered prior to the start of the case. Bed turned 90 degrees. 18 inch tourniquet applied to the right upper extremity appropriately padded. SCDs on the legs. All bony prominences padded. Upper extremity prepped and draped with chlorhexidine-based prep solution allowing over 3 minutes drying time prior to draping. Preoperative timeout performed to confirm the site patient and the surgery. Began by elevating the limb inflated the tourniquet to 250 mmHg. Made a standard volar FCR approach to the distal radius. The dissection down through skin and subcutaneous tissue achieved meticulous hemostasis. Incised the FCR tendon sheath as well as the subs sheath retracted this radially. Identified the FPL ligated any crossing branches of the radial artery. Retracted FPL ulnarly. Made an L-shaped incision of pronator quadratus. Elevated this from radially to ulnarly. Identified the fracture site there is already callus interposed there and remobilize the fracture site and used a rongeur's to mobilize and freshen the fracture as well as remove any callus. Reduce the fracture anatomically. This is a 2 part extra-articular transverse metaphyseal fracture. Achieving anatomic reduction. Placed an Arthrex narrow precontoured volar radius plate on the bone. I fixed this to the proximal fragment. Then ensure the distal fragment was out to length and well aligned. I inserted 4 fully threaded locking cortical screws of the distal fragment 2.4 mm as well as 3 proximal 2.7 millimeter screws to fix the plate down to the bone. This were cortical screws. This achieved good fixation. It took final radiographs AP lateral oblique as well as 30 degree joint view to ensure that the plate was proximal well centered on the bone the screws had good bite and anatomic reduction no screw penetration to the joint. The distal screws I slightly shortened so that the screws were 20 mm in length distally to avoid dorsal penetration. Tourniquet let down meticulous hemostasis wound thoroughly irrigated. Subcutaneous tissue closed with 2-0 Vicryl suture skin with 3-0 Monocryl. 10 cc core percent bupivacaine used. Skin cleaned with wet and dry dressing followed application of Steri-Strips Adaptic 4 x 4 gauze sterile cast padding volar fiberglass prefabricated volar splint with the hand and wrist in neutral lightly overwrapped with Robert wrap. This was allowed to harden. Patient woken up for the general anesthetic transferred off the operating table taken to postanesthetic care unit in stable condition. All sponge needle instrument counts were correct no complications plan for the patient discharged home according to day surgery criteria. CPT 76558? Surgical Findings: As above Complications Complications: No Admit VTE Documentation VTE Present on Admission: No VTE Mechan Device Prophylaxis: SCD's VTE Pharm Prophylaxis ordered?: No Reason prophylaxis not ordered: Treatment Not Indicated
--- NOTE | 2024-12-17 10:44 | DCINST_ITS ---
Discharge Instructions Diet Discharge Diet: No restrictions Activity Ice area for (Minutes): 10 Keep extremity elevated above heart level: Operative Extremity Additional Activity Instructions:: no heavy lifting or gripping Dressing / Incision Call your doctor if your incision/area has: Continuous Slow Oozing, Sudden Increased Bleeding, Increased Pain/ Swelling, Increased Redness, Foul Smelling Discharge and Swelling at the incision site Call your doctor if you observe: Fever of 101 or Higher, Coldness, Increased Pain and Numbness or Tingling Remove Dressing in: leave in place till F/U Cleanse incision/area with: Do not get Incision Wet Follow Up Care Please Follow Up With: Terrance Edmondson MD When: within 2 weeks Test Results: Test results from this visit will be discussed in further detail at your follow- up appointment, if applicable. Discharge Plan Admission Attending Provider: Terrance Edmondson Primary Care Provider: Desiree Carlson Instructions Print Language: American Discharge Orders/Prescriptions Prescriptions: New oxycodone-acetaminophen [Endocet] 5-325 mg tablet 1 tab PO Q4H MDD 6 PRN (Reason: pain) 4 Days Qty: 20 0RF No Action multivitamin [Daily Multi-Vitamin] Tablet 1 tab PO DAILY Referrals / Follow Up: Desiree Carlson MD [Primary Care Provider] - Terrance Edmondson MD [Med Staff - Active Staff] - Disposition Disposition (needs filled in before D/C Order can be placed): Home, Self Care
--- NOTE | 2024-12-17 10:48 | PCM.POST.ANE ---
Anesthesia: Postop Eval I Current Vital Signs Temperature: 97.6 F Pulse Rate: 95 Blood Pressure: 130/87 Respiratory Rate: 18 Pulse Ox: 97 Oxygen Delivery Method: Nasal Cannula Oxygen Flow Rate (L/min): 4 Assessment Airway patent: Yes Spontaneous unlabored respirations: Yes Mental status: Awake and Calm nausea: No Vomiting: No Anesthesia Complication: No Fluid Hydration Crystalloid volume administer (ml): 1,000 Total IV fluid infused: 1,000 Progress Note Anesthesia document: Postop Eval 1 completed: No
--- NOTE | 2024-12-17 15:24 | POSTOPAN2_ITS ---
Anesthesia Postop Eval I Sum Postop Eval Completion status Anesthesia document: Postop Eval 1 completed: No Anesthesia Postop Eval I Summary Anesthesia Postop Eval I Summary: Anesthesia Postop Eval I: Assessment Summary Airway patent Yes 12/17/24 10:49 TODDLER [email or web address] Spontaneous unlabored Yes 12/17/24 10:49 TODDLER [email or web address].JRIV respirations Mental status Awake,Calm 12/17/24 10:49 TODDLER [email or web address].JRIV nausea No 12/17/24 10:49 TODDLER NANNY.JRIV Vomiting No 12/17/24 10:49 TODDLER [email or web address].JRIV Anesthesia Postop Eval I: Fluid Summary Crystalloid volume administer 1,000 12/17/24 10:49 TODDLER NANNY.JRIV (ml) Colloids volume administered ( ml) Blood Product volume administered (ml) Total IV fluid infused 1,000 12/17/24 10:49 TODDLER [email or web address].JRIV Anesthesia Postop Eval I: Summary Notes Anesthesia Complication No 12/17/24 10:49 TODDLER [email or web address] Anesthesia Complication Comment: Post-operative progress note Anesthesia: Postop Eval II Evaluation Mental status: Awake and Calm Pain Level: 3 nausea: No Vomiting: No Complications Anesthesia Complication: No
--- NOTE | 2024-12-17 15:24 | PCM.POSTANE2 ---
Anesthesia Postop Eval I Sum Postop Eval Completion status Anesthesia document: Postop Eval 1 completed: No Anesthesia Postop Eval I Summary Anesthesia Postop Eval I Summary: Anesthesia Postop Eval I: Assessment Summary Airway patent Yes 12/17/24 10:49 ENERGY AND SUSTAINABILITY [email or web address] Spontaneous unlabored Yes 12/17/24 10:49 ENERGY AND SUSTAINABILITY MANAGER.JRIV respirations Mental status Awake,Calm 12/17/24 10:49 ENERGY AND SUSTAINABILITY MANAGER.JRIV nausea No 12/17/24 10:49 ENERGY AND SUSTAINABILITY MANAGER.JRIV Vomiting No 12/17/24 10:49 ENERGY AND SUSTAINABILITY MANAGER.JRIV Anesthesia Postop Eval I: Fluid Summary Crystalloid volume administer 1,000 12/17/24 10:49 ENERGY AND SUSTAINABILITY MANAGER.JRIV (ml) Colloids volume administered ( ml) Blood Product volume administered (ml) Total IV fluid infused 1,000 12/17/24 10:49 ENERGY AND SUSTAINABILITY MANAGER.JRIV Anesthesia Postop Eval I: Summary Notes Anesthesia Complication No 12/17/24 10:49 ENERGY AND SUSTAINABILITY MANAGER.JRIV Anesthesia Complication Comment: Post-operative progress note Anesthesia: Postop Eval II Evaluation Mental status: Awake and Calm Pain Level: 3 nausea: No Vomiting: No Complications Anesthesia Complication: No
== END 2024-12-17 14:34 | disposition home or self-care (01) ==
LOC: SDC 07:24 → AC 07:25
PROVIDERS: PCP Internal Medicine; Referring Provider Orthopaedic Surgery Sports Medicine; Visit Provider Orthopaedic Surgery Sports Medicine
PROC: (CPT 25607; principal; 2024-12-17 08:40)
DX: S52.501A Unspecified fracture of the lower end of right radius, initial encounter for closed fracture (principal); X58.XXXA Exposure to other specified factors, initial encounter
CPT/HCPCS: 25607; 64450; 01830; 73100; 76000; 93005; C1713; J2405